=== PATIENT | female | born 1955 | race Caucasian/White ===

== ENCOUNTER → 2016-11-28 | Outpatient (CLI) | payer OTHER ==
--- NOTE | 2016-11-28 11:54 | RAD ---
Lumbar spine, 2 views, 11/28/2016: History: Osteoarthritis, back pain The lumbar vertebral heights are well-maintained. There is moderate narrowing of the L5-S1 disc space with mild marginal spurring. The other intervertebral disc spaces are well preserved. There are moderate degenerative changes involving the facet joints bilaterally in the lower lumbar spine. There is a mild associated spondylolisthesis at L4-5. Aortic calcific plaquing is present. A lap band type device is projected over the upper abdomen. IMPRESSION: 1. Moderate degenerative disc disease at L5-S1. 2. Moderate facet joint arthropathy in the lower lumbar spine with a mild associated spondylolisthesis at L4-5.
--- NOTE | 2016-11-28 11:57 | RAD ---
Right knee, 2 views, 11/28/2016: History: Osteoarthritis, previous ACL surgery The bony structures are demineralized. There are surgical screws in the distal femur and proximal tibia compatible with the history of previous ACL reconstructive surgery. There is an additional surgical screw in the proximal tibia along the inferior aspect of the tibial tuberosity. There is moderate spurring at the knee joint. Moderate degenerative change is present the patellofemoral articulation. No acute fracture or dislocation is identified. No large joint effusion is seen. IMPRESSION: 1. Demineralization. 2. Moderate degenerative change. 3. No acute bony abnormality is detected.
== END | disposition home or self-care (01) ==
LOC: RAD 09:14
PROVIDERS: ATTEND Surgery
DX: M17.11 Unilateral primary osteoarthritis, right knee (principal)
CPT/HCPCS: 72100; 73560